=== PATIENT | male | born 2005 | race Hispanic/Latino ===

== ENCOUNTER 2024-08-12 12:46 | Emergency (ER) | payer BC ==
[~2024-08-12] VITALS: Ht 170.2 cm; Wt 65.8 kg
[2024-08-12 12:57] VITALS: PULSE 86; RESP 18; TEMP 98.3
[2024-08-12] MEDS ORDERED: ONDANSETRON ODT4 MG PO (13:17)
[2024-08-12] MEDS ORDERED: BENZONATATE100 MG PO (13:17)
[2024-08-12 14:49] LABS: INFLUENZA A AG POSITIVE (NEGATIVE); INFLUENZA B AG NEGATIVE (NEGATIVE)
[2024-08-12 14:50] LABS: CORONAVIRUS COVID-19 AG NEGATIVE (NEGATIVE)
[2024-08-12 15:06] VITALS: BP 121/70; PULSE 85; RESP 18; TEMP 98.1; O2SAT 99
== END 2024-08-12 15:08 | disposition home or self-care (01) ==
LOC: ER 13:00
DX: R05.9 Cough, unspecified (principal); J10.1 Influenza due to other identified influenza virus with other respiratory manifestations; R09.81 Nasal congestion; R51.9 Headache, unspecified; F17.290 Nicotine dependence, other tobacco product, uncomplicated
CPT/HCPCS: 99283